=== PATIENT | female | born 1970 | race Caucasian/White ===

== ENCOUNTER 2016-12-18 09:21 | Outpatient (CLI) | payer OTHER ==
[2016-12-18 13:34] LABS: #Basophils 0.1 thou/uL (0.0-0.2); #Eosinphils 0.1 thou/uL (0.0-0.7); #Lymphocytes 2.3 thou/uL (1.20-3.40); #Monocytes 0.8 thou/uL (0.11-0.59); #Neutrophils 4.1 thou/uL (1.40-6.50); %Basophils 0.7 % (0.0-1.0); %Lymphocytes 31.2 % (21.0-51.0); %Monocytes 10.5 % (0.0-10.0); Hematocrit 40.2 % (36.0-47.0); Mean Platelet Volume 7.5 fL (7.4-10.4); Red Blood Cell (RBC) Count 4.08 mill/uL (4.20-5.40); White Blood Cell (WBC) Count 7.3 thou/uL (4.8-10.8)
[2016-12-18 13:58] LABS: Anion Gap 13 mmol/L (10-20); BUN (Urea Nitrogen) 12 mg/dL (7.0-18.7); Calc. Creatinine Clearance 0 mL/min (70-130); Calcium 9.6 mg/dL (7.8-10.44); Carbon Dioxide 28 mmol/L (22-29); Chloride 104 mmol/L (98-107); Estimated GFR-MDRD Greater than 90
--- NOTE | 2016-12-20 06:33 | EKG ---
Test Reason : PREOP Blood Pressure : / mmHG Vent. Rate : 071 BPM Atrial Rate : 071 BPM P-R Int : 136 ms QRS Dur : 082 ms QT Int : 386 ms P-R-T Axes : 019 019 011 degrees QTc Int : 419 ms Normal sinus rhythm Normal ECG No previous ECGs available Confirmed by RADHA CURTIS ([id number]) on 12/20/2016 6:32:51 AM Referred By: IERO Confirmed By:RADHA CURTIS
== END 2016-12-18 09:22 | disposition home or self-care (01) ==
LOC: LABBT 09:21
PROVIDERS: ATTEND Orthopaedic Surgery
DX: Z01.818 Encounter for other preprocedural examination (principal)
CPT/HCPCS: 80048; 85025; 93005; 93010

== ENCOUNTER 2016-12-20 05:37 | Day surgery (SDC) | payer OTHER ==
[2016-12-18 09:29] VITALS: BMI 29.2
[2016-12-20] MEDS ORDERED: Diprivan 0 ML ONE (06:17)
[2016-12-20] MEDS ORDERED: Midazolam HCl 2 mg/2 ml Vial ONE (06:42)
[2016-12-20] MEDS ORDERED: Fentanyl 100 MCG/2 ML VIAL ONE ×5 (06:42→09:08)
[2016-12-20] MEDS ORDERED: Lidocaine 1% PF 5 ML VIAL ONE (07:38)
[2016-12-20] MEDS ORDERED: PHENYLEPHRINE-NS 100 MCG/ML 10 ML SYRINGE ONE (07:38)
[2016-12-20] MEDS ORDERED: Ondansetron HCl/PF 4 MG/2 ML Vial ONE (07:38)
[2016-12-20] MEDS ORDERED: Ketorolac Tromethamine 30 MG/ML VIAL ONE (07:38)
[2016-12-20] MEDS ORDERED: ePHEDrine/0.9% NaCl/PF SYRINGE 50 mg/10 ml ONE (07:38)
[2016-12-20] MEDS ORDERED: Propofol 200 MG/20 ML VIAL ONE (07:38)
--- NOTE | 2016-12-20 07:38 | CON ---
DATE OF CONSULTATION: 12/20/2016 HISTORY OF PRESENT ILLNESS: Ms. Alcocer presents with a history of Harman's cyst and right knee pain. She is going to the operating room today with Dr. Moya for a right knee arthroscopy. I have been asked to help him with removal of the right popliteal fossa Harman's cyst. Pain begins in her knee a nd radiates up the back of her thigh. This cyst is close to her hamstring tendons, which seemed to be causing a significant amount of her pain issue. PAST MEDICAL HISTORY: 1. Endometriosis. 2. Depression. 3. Anxiety. PAST SURGICAL HISTORY: 1. Hysterectomy. 2. . SOCIAL HISTORY: She is a former smoker. She occasionally uses alcohol. MEDICATIONS: Noted. ALLERGIES: None. REVIEW OF SYSTEMS: Limited review of systems performed and is negative except as above. PHYSICAL EXAMINATION: GENERAL: This is a well-developed, well-nourished woman, in no acute distress. VITAL SIGNS: Her heart rate is 60 and regular and blood pressure is 130/72. LUNGS: Clear bilaterally. HEART: Rhythm is regular. ABDOMEN: Soft and nontender. EXTREMITIES: There is no edema. She has palpable pedal pulses bilaterally. Palpation of the right popliteal fossa causes pain that extends up the back of her thigh. I cannot palpate a cyst, but it is present on MRI. ASSESSMENT AND PLAN: I have discussed a medial approach to her popliteal fossa and excision of any cyst tissue that we find. She is agreeable and understands that this may not completely alleviate a ll of her pain.
[2016-12-20] MEDS ORDERED: HYDROcodone/Acetaminophen 5/325 mg Tablet ONE (09:38)
--- NOTE | 2016-12-20 10:40 | OP ---
DATE OF OPERATION: 12/20/2016 PREOPERATIVE DIAGNOSIS: Harman's cyst. POSTOPERATIVE DIAGNOSIS: Harman's cyst. PROCEDURE: Open excision of Harman's popliteal cyst and semitendinosus cyst. DESCRIPTION OF PROCEDURE: The right leg was prepped and draped in usual sterile fashion. After art hroscopy by Dr. Moya, the leg was frog-legged. The skin incision was made over Evangelist's canal and d issection down through the fascia obtained with electrocautery. Semitendinosus cyst was easily palp able and excised using electrocautery. Popliteal cyst was then palpable and excised using electroca utery. The tourniquet was deflated. Hemostasis ensured. Wound was copiously irrigated. Wound was then closed in layers and Dermabond applied to the skin. Patient tolerated the procedure well and will be discharged to home by today.
--- NOTE | 2016-12-20 11:51 | OP ---
DATE OF PROCEDURE: 12/20/2016 PREOPERATIVE DIAGNOSIS: 1. Right knee, grade 3, lesion of the trochlea and patella. 2. Complex cyst of the popliteal hiatus and behind the semimembranosus. SURGEONS: Two first surgeons- Dr. Moya with no technical support assistant on the knee arthroscopy with debridement and shaving. Dr. Muñoz is primary surgeon with Dr Moya assisting for Removal of complex lockwood's cyst. Dr. Muñoz will dictate the cyst removal. ANESTHESIA: The patient had general anesthetic. She also had local knee block. CONDITION: She did go to recovery room in stable condition. INDICATIONS: Ms. Alcocer is a 46-year-old female, who comes in complaining of leg pain and pain in the knee secondary to a chondral injury inside of the knee as well as a complex cyst on the posterior aspect of the knee. At this time, she opted to have surgery. OPERATIVE PROCEDURE: After all appropriate consent forms were explained and signed, she was taken to the operating room, and at this time was given general anesthetic. Once anesthesia was appropriate, tourniquet was placed on the right thigh and the leg was prepped in standard surgical fashion. The limb was elevated, not exsanguinated, and tourniquet taken up to 300 mmHg. An inferolateral portal was then established and the scope was placed into the knee joint. Needle localization technique was then used to make a medial working portal. Diagnostic arthroscopy commenced in the notch. ACL and PCL probed and found to be intact. The medial compartment was in good condition. Lateral compartment was in good condition except for a large piece of cartilage that was underneath the lateral meniscus, which was removed with the shaver. The gutters were swept through and no loose bodies were noted and the patellofemoral joint was evaluated and the patient was found to have a grade 3 chondral injury of the trochlea and one of the patella with some unstable chondral flaps. This was taken down with the shaver down to a stable base. Loose cartilaginous bodies were removed from the suprapatellar pouch. At this time, scope was removed, the knee was drained. At this time, Dr. Muñoz then became primary surgeon for the removal of the popliteal cyst. Please see his dictation for further dictation. Once Dr. Muñoz had been done with his procedure, I then closed each portal with a simple nylon stitch, and once he was done closing, a bulky sterile dressing was applied to the right lower extremity. The patient was then awakened and taken to the recovery room in stable condition. All counts were correct at the end of the case. She did receive preoperative IV antibiotics. HARSHA
== END 2016-12-20 11:15 | disposition home or self-care (01) ==
LOC: SDC 05:37
PROVIDERS: ATTEND Orthopaedic Surgery
PROC: 0SBC4ZZ Excision of Right Knee Joint, Percutaneous Endoscopic Approach (ICD-10-PCS; principal; 2016-12-20)
PROC: 0JBN0ZX Excision of Right Lower Leg Subcutaneous Tissue and Fascia, Open Approach, Diagnostic (ICD-10-PCS; principal; 2016-12-20)
DX: M22.41 Chondromalacia patellae, right knee (principal); M71.21 Synovial cyst of popliteal space [Baker], right knee; F32.9 Major depressive disorder, single episode, unspecified; F41.9 Anxiety disorder, unspecified; Z95.9 Presence of cardiac and vascular implant and graft, unspecified; Z87.891 Personal history of nicotine dependence; Z79.899 Other long term (current) drug therapy; Z98.890 Other specified postprocedural states
CPT/HCPCS: 88304; 96374; G8978-GP-CI; G8979-GP-CI; G8980-GP-CI; J1885; J2001; J2250; J2270; J2405; J2704; J3010